=== PATIENT | female | born 1980 | race African-American/Black ===

== ENCOUNTER 2018-01-05 17:00 | Emergency (ER) | payer BC, OTHER ==
[~2018-01-05] VITALS: Ht 165.1 cm; Wt 73.5 kg
[~2018-01-05 17:00] MED LIST: IBUPROFEN 800800 M1 PO; NAPROSYN500 MG PO; PREDNISONE 20 M20 MG PO
[2018-01-05 17:54] LABS: ABSOLUTE NEUTROPHILS 9.3 thou/uL (1.4-8.2); BASOPHILS 0.1 % (0.0-2.0); EOSINOPHILS 0.5 % (0.0-3.0); HEMATOCRIT 38.9 % (37.0-47.0); LYMPHOCYTES 5.4 % (24.0-44.0); MCH 30.5 pg (26.0-34.0); MCHC 33.3 g/dL (28.0-37.0); MCV 91.4 fL (80.0-100.0); MONOCYTES 1.8 % (1.0-8.0); PLATELET COUNT 281 thou/uL (150-400); POLYS 92.2 % (36.0-66.0); RBC 4.26 mil/uL (4.20-5.00); RDW 13.3 % (10.5-14.5); WBC 10.1 thou/uL (4.0-11.0)
[2018-01-05 18:03] LABS: CALCIUM 9.1 mg/dL (8.5-10.1); CREATININE 0.9 mg/dL (0.6-1.0); POTASSIUM 3.7 mmol/L (3.5-5.1)
[2018-01-05 18:09] LABS: ALBUMIN 3.7 g/dL (3.4-5.0); TOTAL BILIRUBIN 0.3 mg/dL (<0.1-1.0); TOTAL PROTEIN 8.2 g/dL (6.4-8.2)
[2018-01-05 18:24] LABS: URINE BILIRUBIN NEGATIVE (Negative); URINE BLOOD 1+ (Negative); URINE CLARITY CLEAR; URINE COLOR YELLOW; URINE GLUCOSE-RANDOM* NEGATIVE (Negative); URINE KETONES NEGATIVE (Negative); URINE LEUKOCYTES NEGATIVE (Negative); URINE NITRITE NEGATIVE (Negative); URINE PROTEIN (DIPSTICK) TRACE (Negative); URINE SPECIFIC GRAVITY 1.015 (1.005-1.035); URINE UROBILINOGEN 0.2 E.U./dl (0.2-1.0)
[2018-01-05 18:28] LABS: BACTERIA None Seen /HPF (None Seen); CASTS None Seen /LPF (None Seen); CRYSTALS None Seen /LPF (None Seen); SQUAMOUS 0-3 Few /LPF (0-3); URINE RBC 0-2 Rare /HPF (0-2); URINE WBC 0-5 Rare /HPF (0-5)
[2018-01-05] MEDS ORDERED: ONDANSETRON HCL4 M2 PO (19:12)
[2018-01-05 19:33] VITALS: BP 126/82
== END 2018-01-05 19:34 | disposition home or self-care (01) ==
LOC: ER 17:00
PROVIDERS: Nurse Practitioner Family
DX: F10.129 Alcohol abuse with intoxication, unspecified (principal); R11.2 Nausea with vomiting, unspecified; F41.9 Anxiety disorder, unspecified

== ENCOUNTER 2018-03-05 19:19 | Emergency (ER) | payer BC, OTHER ==
[~2018-03-05] VITALS: Ht 167.6 cm; Wt 73.5 kg
[~2018-03-05 19:19] MED LIST changes: +ONDANSETRON HCL4 M2 PO
[2018-03-05 19:40] VITALS: BP 114/78
[2018-03-05] MEDS ORDERED: SENNA8.6 MG PO (20:10)
[2018-03-05] MEDS ORDERED: NOHOMEMEDICATIONS (20:14)
== END 2018-03-05 20:16 | disposition home or self-care (01) ==
LOC: ER 19:19
DX: K59.00 Constipation, unspecified (principal); F41.9 Anxiety disorder, unspecified; Z98.890 Other specified postprocedural states; Z88.8 Allergy status to other drugs, medicaments and biological substances

== ENCOUNTER 2018-04-11 13:25 | Emergency (ER) | payer BC, OTHER ==
[~2018-04-11] VITALS: Ht 167.6 cm; Wt 72.6 kg
[~2018-04-11 13:25] MED LIST changes: +NOHOMEMEDICATIONS; +SENNA8.6 MG PO
[2018-04-11] MEDS ORDERED: PRENATAL GUMMI1 EACH PO (16:32)
[2018-04-11 16:51] VITALS: BP 118/77
== END 2018-04-11 16:57 | disposition home or self-care (01) ==
LOC: ER 13:25
DX: Z33.1 Pregnant state, incidental (principal); K59.00 Constipation, unspecified; F41.9 Anxiety disorder, unspecified

== ENCOUNTER 2019-07-29 13:56 | Emergency (ER) | payer OTHER ==
[~2019-07-29] VITALS: Ht 165.1 cm; Wt 74.4 kg
[~2019-07-29 13:56] MED LIST changes: +PRENATAL GUMMI1 EACH PO
[2019-07-29] MEDS ORDERED: NORFLEX100 MG PO (16:06)
[2019-07-29] MEDS ORDERED: IBUPROFEN 800800 M1 PO (16:06)
[2019-07-29 16:20] VITALS: BP 122/90
== END 2019-07-29 16:18 | disposition home or self-care (01) ==
LOC: ER 13:56
DX: S39.012A Strain of muscle, fascia and tendon of lower back, initial encounter (principal); S83.8X1A Sprain of other specified parts of right knee, initial encounter; F41.9 Anxiety disorder, unspecified; Z98.890 Other specified postprocedural states; Z91.048 Other nonmedicinal substance allergy status; V89.2XXA Person injured in unspecified motor-vehicle accident, traffic, initial encounter; Y92.89 Other specified places as the place of occurrence of the external cause; Y93.89 Activity, other specified; Y99.8 Other external cause status

== ENCOUNTER 2021-03-10 17:50 | Emergency (ER) | payer OTHER ==
[~2021-03-10] VITALS: Ht 165.1 cm; Wt 74.8 kg
[~2021-03-10 17:50] MED LIST changes: +NORFLEX100 MG PO
[2021-03-10 18:10] LABS: URINE BILIRUBIN NEGATIVE (Negative); URINE BLOOD NEGATIVE (Negative); URINE CLARITY CLEAR; URINE COLOR YELLOW; URINE GLUCOSE-RANDOM* NEGATIVE (Negative); URINE KETONES NEGATIVE (Negative); URINE LEUKOCYTES-REFLEX NEGATIVE (Negative); URINE NITRITE-REFLEX NEGATIVE (Negative); URINE PROTEIN (DIPSTICK) NEGATIVE (Negative); URINE UROBILINOGEN 0.2 E.U./dl (0.2-1.0)
[2021-03-10] MEDS ORDERED: FLEXERIL PO (18:38)
[2021-03-10] MEDS ORDERED: IBUPROFEN 600600 M1 PO (18:38)
[2021-03-10 19:39] VITALS: BP 124/87
== END 2021-03-10 19:41 | disposition home or self-care (01) ==
LOC: ER 17:50
PROVIDERS: Emergency Medicine
DX: S33.5XXA Sprain of ligaments of lumbar spine, initial encounter (principal); Z98.890 Other specified postprocedural states; X58.XXXA Exposure to other specified factors, initial encounter; Y93.89 Activity, other specified; Y92.89 Other specified places as the place of occurrence of the external cause; Y99.8 Other external cause status

== ENCOUNTER → 2021-04-12 | Emergency (ER) | payer OTHER ==
[~2021-04-12] VITALS: Ht 165.1 cm; Wt 74.8 kg
[~2021-04-12] MED LIST changes: +AMOXICILLIN875 MG PO; +FLEXERIL PO; +IBUPROFEN 600600 M1 PO
[2021-04-12 17:46] VITALS: BP 113/77
== END ==
LOC: ER 17:39
DX: H61.22 Impacted cerumen, left ear (principal); H66.92 Otitis media, unspecified, left ear; F41.9 Anxiety disorder, unspecified; Z79.1 Long term (current) use of non-steroidal anti-inflammatories (NSAID); Z91.09 Other allergy status, other than to drugs and biological substances